=== PATIENT | male | born 1985 | race African-American/Black ===

== ENCOUNTER 2020-10-17 16:28 | Emergency (ER) | payer MEDICAID ==
[~2020-10-17] VITALS: Ht 167.6 cm; Wt 76.0 kg
[2020-10-17 16:41] VITALS: BP 127/71
== END 2020-10-17 17:05 | disposition home or self-care (01) ==
LOC: ED 16:55
DX: F32.9 Major depressive disorder, single episode, unspecified (principal); Z76.0 Encounter for issue of repeat prescription
CPT/HCPCS: 99281

== ENCOUNTER 2020-10-26 09:00 | Emergency (ER) | payer MEDICAID ==
[~2020-10-26] VITALS: Ht 167.6 cm; Wt 75.9 kg
[2020-10-26 09:01] VITALS: BP 121/89
--- NOTE | 2020-10-26 09:15 | NUR ---
PATIENT WALKED BACK FROM TRIAGE WITH CHIEF C/O LUMP ON RIGHT SIDE OF CHIN. PER PATIENT LUMP HAS BEEN THERE FOR MORE THAN A YEAR. PATIENT DENIES FEVER, NO PAIN. [place] [facility] AT BEDSIDE FOR EVALUATION, CALL LIGHT WITHIN REACH.
--- NOTE | 2020-10-26 10:11 | NUR ---
[facility] given discharge instructions and dermatology referral and they have confirmed that they understand the instructions. Patient stable and ambulatory with steady gait from ED to private vehicle.
== END 2020-10-26 10:12 | disposition home or self-care (01) ==
LOC: ED 09:32
DX: L72.3 Sebaceous cyst (principal); R22.0 Localized swelling, mass and lump, head
CPT/HCPCS: 99281

== ENCOUNTER 2020-11-02 12:11 | Emergency (ER) | payer MEDICAID ==
[~2020-11-02] VITALS: Ht 167.6 cm; Wt 75.6 kg
[2020-11-02 13:54] VITALS: BP 124/74
== END 2020-11-02 13:55 | disposition home or self-care (01) ==
LOC: ED 13:39
DX: F32.9 Major depressive disorder, single episode, unspecified (principal); Z76.0 Encounter for issue of repeat prescription
CPT/HCPCS: 99281

== ENCOUNTER 2020-11-16 16:17 | Emergency (ER) | payer MEDICAID ==
[~2020-11-16] VITALS: Ht 167.6 cm; Wt 77.7 kg
[2020-11-16 16:29] VITALS: BP 116/76
== END 2020-11-16 17:20 | disposition home or self-care (01) ==
LOC: ED 16:36
DX: F32.9 Major depressive disorder, single episode, unspecified (principal); Z76.0 Encounter for issue of repeat prescription
CPT/HCPCS: 99281